=== PATIENT | female | born 1995 | race Caucasian/White ===

== ENCOUNTER 2017-01-19 12:07 | Emergency (ER) | payer BC, MEDICAID, OTHER ==
[~2017-01-19] VITALS: Ht 157.5 cm; Wt 56.8 kg
[~2017-01-19 12:07] MED LIST: ACETAMINOPHEN W1 TA6 PO; ADVAIR HFA1 AE2 IH; ALREX 1 ML1 ML OP; AMOXICILLIN 50500 MG PO; ATROVENT NASAL15 ML NS; BENEFIBER PO; CIPRO HC OTIC S10 ML OT; CORTISPORIN OTI10 M2 OT; MULTI-DAY PLUS1 TAB PO; NASONEX0.05 MG/AC NS; PREVACID 15MG15 M1 PO; SINGULAIR5 MG PO; XOPENEX 1.1.25 MG/3 IH; XOPENEX HF0.045 MG/A IH; ZITHROMAX 250M250 MG PO; ZYRTEC10 MG PO
[2017-01-19 12:13] VITALS: BP 109/67; TEMP 98
[2017-01-19] MEDS ORDERED: ALLERGY SHOT (12:52)
[2017-01-19 13:07] LABS: PH 5 (5-8); SQUAMOUS EPITHELIAL 0-2 /hpf; URINE APPEARANCE Clear; URINE BACTERIA None Seen /hpf; URINE BILIRUBIN Negative (NEGATIVE); URINE BLOOD Negative (NEGATIVE); URINE COLOR Yellow; URINE GLUCOSE Negative (NEGATIVE); URINE KETONE Trace (NEGATIVE); URINE RBC None Seen /hpf; URINE UROBILINOGEN Negative (NEGATIVE); URINE WBC 0-2 /hpf
[2017-01-19] MEDS ORDERED: ULTRAM 50MG TAB50 MG PO (13:52)
[2017-01-19] MEDS ORDERED: AMOXICILLIN 50500 MG PO (13:53)
[2017-01-19 14:17] VITALS: PULSE 58
== END 2017-01-19 14:18 | disposition home or self-care (01) ==
LOC: COL.ER 12:07
PROVIDERS: Physician Assistant
DX: S02.40DA Maxillary fracture, left side, initial encounter for closed fracture (principal); K03.81 Cracked tooth; V43.52XA Car driver injured in collision with other type car in traffic accident, initial encounter
CPT/HCPCS: J1885

== ENCOUNTER 2018-11-19 13:37 | Emergency (ER) | payer OTHER, BC ==
[~2018-11-19] VITALS: Ht 157.5 cm; Wt 56.8 kg
[~2018-11-19 13:37] MED LIST changes: +ALLERGY SHOT; +ULTRAM 50MG TAB50 MG PO
[2018-11-19 13:40] VITALS: BP 117/75; TEMP 98.1
[2018-11-19] MEDS ORDERED: LIDODERM 5% PATC1 EA TP (15:01)
[2018-11-19 15:14] VITALS: PULSE 66
== END 2018-11-19 15:14 | disposition home or self-care (01) ==
LOC: COL.ER 13:37
DX: S16.1XXA Strain of muscle, fascia and tendon at neck level, initial encounter (principal); K58.9 Irritable bowel syndrome, unspecified; F41.9 Anxiety disorder, unspecified; V43.52XA Car driver injured in collision with other type car in traffic accident, initial encounter

== ENCOUNTER → 2019-11-29 | Outpatient (CLI) | payer OTHER, BC ==
[~2019-11-29] MED LIST changes: +LIDODERM 5% PATC1 EA TP
== END ==
LOC: ZCOL.LAB 15:40
DX: Z20.828 Contact with and (suspected) exposure to other viral communicable diseases (principal)